=== PATIENT | female | born 1955 | race Caucasian/White ===

== ENCOUNTER 2020-03-23 12:01 | Emergency (ER) | payer OTHER ==
[~2020-03-23] VITALS: Ht 157.5 cm; Wt 63.5 kg
[2020-03-23] MEDS ORDERED: URSO250 MG PO (12:19)
[2020-03-23] MEDS ORDERED: SYNTHROID50 MCG (12:19)
[2020-03-23] MEDS ORDERED: ZITHROMAX500 MG PO (16:16)
== END 2020-03-23 16:30 | disposition home or self-care (01) ==
LOC: ER 12:01
DX: I87.2 Venous insufficiency (chronic) (peripheral) (principal); R20.0 Anesthesia of skin; B96.0 Mycoplasma pneumoniae [M. pneumoniae] as the cause of diseases classified elsewhere; M79.605 Pain in left leg; M79.604 Pain in right leg